=== PATIENT | male | born 1995 | race Caucasian/White ===

== ENCOUNTER 2025-04-07 15:17 | Emergency (ER) | payer OTHER ==
[~2025-04-07] VITALS: Ht 170.2 cm; Wt 114.0 kg
[2025-04-07 15:19] VITALS: BP 151/83; PULSE 81; TEMP 98.6; O2SAT 96
--- NOTE | 2025-04-07 15:48 | RADIOLOGY REPORT ---
DI CHEST,SINGLE VIEW, HISTORY: right rib pain COMPARISON: None None TECHNICAL DATA: 1 view of the chest was obtained. FINDINGS: Lines and tubes: None Cardiomediastinal silhouette: normal Pulmonary vasculature: normal Lung expansion: normal Lung airspace: normal Lung interstitium: normal Pleura: normal Pneumothorax: no Bones: Unremarkable Other: no IMPRESSION: No acute intrathoracic abnormality.
--- NOTE | 2025-04-07 18:06 | Physician Documentation ---
History of Present Illness ~ Chief Complaint: Rib pain Stated Complaint: RIB PAIN Time Seen by MD: 17:05 HPI Patient is seen today with complaints of right-sided rib pain just under his axilla on the right side. Patient states he was rough-housing with his dog and got tripped up and fell forcibly onto the hard ground hitting his right ribcage on the ground. Patient states he has pain when trying to breathe. He denies any fever or chills. He has no other concern or complaint at this time. He denies any chest pain or abdominal pain or nausea, vomiting, diarrhea. Tetanus within 5 Years?: Yes Allergies: Coded Allergies: Sulfa (Sulfonamide Antibiotics) (Unverified Adverse Reaction, Mild, vomiting, 04/07/25) Active Prescriptions See Medication Reconciliation Form. Review of Systems Constitutional: Denies: chills, fever, weakness Eyes: Denies: pain, blurred vision ENT: Denies: ear pain, nose pain, throat pain, mouth pain Respiratory: Denies: cough, shortness of breath Cardiovascular: Denies: chest pain, palpitations Gastrointestinal: Denies: abdominal pain, nausea, vomiting Genitourinary: Denies: burning, dysuria Male Genitalia: Denies: penile discharge, testicular pain Neurological: Denies: headache, dizziness Musculoskeletal: Denies: pain, swelling Integumentary: Denies: rash, lesions Allergic/Immunologic: Denies: hives, itching Hematologic/Lymphatic: Denies: no symptoms reported Psychiatric: Denies: depression, anxiety Physical Exam Vital Signs: Temperature: 98.6, Source: Oral, Heart Rate: 81, Respiratory Rate: 16, BP: 151/83, Pulse Oximetry: 96, Weight: 114.000 Oxygen Flow Rate: 0 Physical Exam General: Awake and Alert, no acute distress. HEENT: Conjunctiva pink, Sclera clear, Mucus Membranes moist. Neck: Supple without masses and tenderness. Resp: Unlabored. Lungs clear to auscultation bilaterally. Heart: Regular Rate and rhythm, normal S1 and S2 without murmur, rub or gallop. Musculoskeletal: Patient on exam does have significant tenderness to palpation of the right ribcage just under the axilla on the right side. I do not appreciate any step-offs. Abdomen: Soft and non tender no organomegaly Extremities: No cyanosis,clubbing or edema. Skin: Warm and Dry. Progress Results/Orders Results/Orders Vital Signs 04/07/25 15:19 Temp 98.6 Pulse 81 Resp 16 B/P (MAP) 151/83 Pulse Ox 96 O2 Flow Rate 0 EKG/XRAY/CT/US/VASC/MRI Chest X-Ray : Additional Comments Chest x-ray interpreted by myself today shows no large effusion, no large infiltrate, normal mediastinum. DIAGNOSTIC RADIOLOGY Patient: SRAVAN PAEZ Medical Record: [id number] [facility] : 1995, Age: 29 Sex: Male Location: ER Patient Status: [facility] ER Service Date/Time: 04/07/25 152 Ordering Physician: KARLA RIVAS MD Exam: CHEST,SINGLE VIEW DI CHEST,SINGLE VIEW, HISTORY: right rib pain COMPARISON: None None TECHNICAL DATA: 1 view of the chest was obtained. FINDINGS: Lines and tubes: None Cardiomediastinal silhouette: normal Pulmonary vasculature: normal Lung expansion: normal Lung airspace: normal Lung interstitium: normal Pleura: normal Pneumothorax: no Bones: Unremarkable Other: no IMPRESSION: No acute intrathoracic abnormality. Electronically Signed by:DEAN WOOTEN MD Date & Time: 04/07/25 154 Dictated by: DEAN WOOTEN MD Dictation date and time: 04/07/25 1533 Primary Care Provider: NO PRIMARY CARE PROVIDER cc: KARLA RIAVS MD ~ Medical Decision Making Findings Patient is seen today with complaints of right-sided rib pain just under his axilla on the right side. Patient states he was rough-housing with his dog and got tripped up and fell forcibly onto the hard ground hitting his right ribcage on the ground. Patient states he has pain when trying to breathe. He denies any fever or chills. He has no other concern or complaint at this time. He denies any chest pain or abdominal pain or nausea, vomiting, diarrhea. Patient did have chest x-ray that showed no acute abnormality. Patient was given Toradol 30 mg IM injection in the ED tonight along with Tylenol 975 mg by mouth. Prescription of ibuprofen 800 mg one tab by mouth 3 times a day sent to patient's pharmacy to be taken as needed. Patient will follow up with primary care in 3-5 days if no better as needed sooner. Return to ED with any worsening, concerning or changing symptoms. Departure Disposition: HOME / SELF CARE / HOMELESS Impression: Primary Impression: Rib pain Condition: Improved Discharge Instructions: Rib Contusion Additional Instructions: Patient did have chest x-ray that showed no acute abnormality. Patient was given Toradol 30 mg IM injection in the ED tonight along with Tylenol 975 mg by mouth. Prescription of ibuprofen 800 mg one tab by mouth 3 times a day sent to patient's pharmacy to be taken as needed. Patient will follow up with primary care in 3-5 days if no better as needed sooner. Return to ED with any worsening, concerning or changing symptoms. Referrals: NO PRIMARY CARE PROVIDER (PCP) Prescriptions Ibuprofen (Ibuprofen) 800 Mg Tablet 1 TAB PO Q8H for pain for 10 Days, #30 TAB 0 Refills Prov: VOLODYMYR SANTIAGO 04/07/25 Signature Scribe Signature: No scribe Attestation: No scribe VOLODYMYR SANTIAGO Apr 07, 2025 18:06
[2025-04-07] MEDS ORDERED: IBUP-1986 PO (18:14)
[2025-04-07 18:29] VITALS: RESP 18
[2025-04-07] MEDS: ketorolac trometh 30MG/ML vial 30 MG/ML VIAL IV ONE (18:29)
[2025-04-07] MEDS: acetaminophen 325mg tablet PO STA (18:29)
== END 2025-04-07 18:44 | disposition home or self-care (01) ==
LOC: ER 15:18
DX: R07.81 Pleurodynia (principal); Z88.2 Allergy status to sulfonamides; W01.0XXA Fall on same level from slipping, tripping and stumbling without subsequent striking against object, initial encounter; Y93.83 Activity, rough housing and horseplay; Y92.89 Other specified places as the place of occurrence of the external cause; Y99.8 Other external cause status
CPT/HCPCS: 71045; 96374; 99284; J1885